=== PATIENT | female | born 1995 | race Two or more races ===

== ENCOUNTER 2023-12-21 07:08 | Outpatient (CLI) | payer OTHER ==
[2023-12-21 09:21] LABS: HEMATOCRIT 39.8 % (36.0-45.00); HEMOGLOBIN 13.6 g/dL (12.0-15.00); MEAN CELL VOLUME 87.3 fL (80.00-100.00); MEAN CORPUSCULAR HEMOGLOBIN 29.9 pg (27.00-32.0); MEAN CORPUSCULAR HGB CONC 34.3 g/dl (32.0-36.0); PLATELET COUNT 225 K/uL (150-450); RED BLOOD COUNT 4.55 M/uL (4.00-6.00); RED CELL DISTRIBUTION WIDTH 14.3 % (11.5-14.5)
[2023-12-21 09:48] LABS: ALBUMIN 4.2 gm/dL (3.4-5.0); BILIRUBIN TOTAL 0.65 mg/dL (0.3-1.2); CALCIUM 9.8 mg/dL (8.5-10.1); CREATININE SERUM 0.55 mg/dL (0.55-1.02); GFR 133.61; GLOBULINA 3.5 G/DL (2.4-3.5); POTASSIUM 4.19 mEq/L (3.5-5.1); TOTAL PROTEIN 7.7 gm/dL (6.4-8.2)
[2023-12-21 13:23] LABS: FOLIC ACID 17.21 ng/ml (4.78-20)
[2023-12-22 09:07] LABS: HOMOCYSTEINE 7.9 umol/L (0.0-14.5)
[2023-12-22 15:11] LABS: ANTI CARDIO IGA < 9 APL U/mL (0-11); ANTI CARDIO IGG < 9 GPL U/mL (0-14); ANTI CARDIO IGM < 9 MPL U/mL (0-12)
== END 2023-12-21 07:09 | disposition home or self-care (01) ==
LOC: LAB 07:08
PROVIDERS: ATTEND Internal Medicine Hematology & Oncology
DX: D68.61 Antiphospholipid syndrome (principal); O00.01 Abdominal pregnancy with intrauterine pregnancy; D51.3 Other dietary vitamin B12 deficiency anemia; D50.8 Other iron deficiency anemias; I10 Essential (primary) hypertension; R74.02 Elevation of levels of lactic acid dehydrogenase [LDH]; K76.89 Other specified diseases of liver; D51.8 Other vitamin B12 deficiency anemias; D68.59 Other primary thrombophilia; D68.51 Activated protein C resistance; D68.69 Other thrombophilia; E72.12 Methylenetetrahydrofolate reductase deficiency

== ENCOUNTER 2024-03-19 16:00 | Emergency (ER) | payer OTHER ==
[~2024-03-19] VITALS: Ht 170.2 cm; Wt 92.1 kg
[~2024-03-19 16:00] MED LIST: LOVENOX40 MG/0.4 SUBCUTANEO; PRENA1 TRUE CO1 EACH PO; VITAMIN B-125000 MC1 PO
[2024-03-19 16:39] LABS: HEMOGLOBIN 11.9 g/dL (12.0-15.00); MEAN CELL VOLUME 86.5 fL (80.00-100.00); MEAN CORPUSCULAR HEMOGLOBIN 29.3 pg (27.00-32.0); MEAN CORPUSCULAR HGB CONC 33.9 g/dl (32.0-36.0); PLATELET COUNT 186 K/uL (150-450); RED BLOOD COUNT 4.05 M/uL (4.00-6.00); RED CELL DISTRIBUTION WIDTH 14.6 % (11.5-14.5)
[2024-03-19 16:57] LABS: INR 1.03; PROTHROMBIN TIME 10.8 SECONDS (9.0-11.5)
[2024-03-19 17:29] LABS: CREATININE SERUM 0.46 mg/dL (0.55-1.02); GFR 162.95; POTASSIUM 3.34 mEq/L (3.5-5.1)
[2024-03-19 18:25] LABS: PH,URINE 7.5 (5.0-8.0); URINE APPEARANCE Clear; URINE BILIRRUBIN Negative (NEGATIVE); URINE BLOOD Large; URINE COLOR Yellow; URINE GLUCOSE Negative (NEGATIVE); URINE LEUKOCYTE Trace; URINE NITRATE Negative; URINE PROTEIN Negative (NEGATIVE)
[2024-03-19 18:29] LABS: URINE EPITHELIAL CELLS 10.6 uL (0.0-38.8); URINE RBC 946.5 uL (0.0-20.8); URINE WBC 24.7 uL (0.0-23.2)
== END 2024-03-19 19:41 | disposition home or self-care (01) ==
LOC: ER 16:01
PROVIDERS: General Practice
DX: O26.892 Other specified pregnancy related conditions, second trimester (principal); R10.2 Pelvic and perineal pain; Z3A.20 20 weeks gestation of pregnancy

== ENCOUNTER 2024-04-14 07:25 | Outpatient (CLI) | payer OTHER | END 2024-04-14 07:34 | disposition home or self-care (01) | LOC: SONOGRAMA 07:25 | PROVIDERS: ATTEND Urology | DX: N20.1 Calculus of ureter (principal) ==

== ENCOUNTER 2024-07-24 15:19 | Outpatient (CLI) | payer OTHER | END 2024-07-24 16:35 | disposition home or self-care (01) | LOC: NST 15:19 | PROVIDERS: ATTEND Obstetrics & Gynecology Maternal & Fetal Medicine | DX: Z34.83 Encounter for supervision of other normal pregnancy, third trimester (principal) ==

== ENCOUNTER 2024-07-31 13:30 | Inpatient (IN) | payer OTHER ==
[~2024-07-31] VITALS: Ht 170.2 cm; Wt 3.6 kg
[2024-08-09 05:30] VITALS: BP 127/78
[2024-08-09] MEDS ORDERED: RINGERS SOLUTION,LACTATED 1,000 ML IV SCH ×2 (05:30→21:00)
[2024-08-09 06:44] LABS: HEMATOCRIT 34.1 % (36.0-45.00); HEMOGLOBIN 11.6 g/dL (12.0-15.00); MEAN CELL VOLUME 81.4 fL (80.00-100.00); MEAN CORPUSCULAR HEMOGLOBIN 27.6 pg (27.00-32.0); MEAN CORPUSCULAR HGB CONC 33.8 g/dl (32.0-36.0); PLATELET COUNT 182 K/uL (150-450); RED BLOOD COUNT 4.19 M/uL (4.00-6.00); RED CELL DISTRIBUTION WIDTH 15.3 % (11.5-14.5)
[2024-08-09 06:53] LABS: INR 0.98; PARTIAL THROMBOPLASTIN TIME 27.2 SECONDS (22.0-34.0); PROTHROMBIN TIME 10.7 SECONDS (9.0-11.5)
[2024-08-09 07:03] LABS: ALBUMIN 3.1 gm/dL (3.4-5.0); BILIRUBIN TOTAL 0.32 mg/dL (0.3-1.2); CALCIUM 10.1 mg/dL (8.5-10.1); CREATININE SERUM 0.5 mg/dL (0.55-1.02); GLOBULINA 3.6 G/DL (2.4-3.5); POTASSIUM 3.92 mEq/L (3.5-5.1); TOTAL PROTEIN 6.7 gm/dL (6.4-8.2)
[2024-08-09 07:32] VITALS: BP 133/82
[2024-08-09] MEDS ORDERED: OXYTOCIN 500 ML IV ONE (08:00)
[2024-08-09 11:35] VITALS: BP 117/54
[2024-08-09 15:20] VITALS: BP 134/79
[2024-08-09 20:40] VITALS: BP 128/70
[2024-08-09] MEDS ORDERED: MORPHINE SULFATE 4 MG/ML CARTRIDGE IV PRN (21:00)
[2024-08-09] MEDS ORDERED: OXYTOCIN 1,000 ML IV ONE (21:00)
[2024-08-09] MEDS ORDERED: OXYTOCIN 10 UNITS/ML VIAL IV ONE (22:15)
[2024-08-09] MEDS ORDERED: CEFAZOLIN SODIUM 1,000 MG VIAL IV ONE (22:15)
[2024-08-09] MEDS ORDERED: ERYTHROMYCIN BASE OPHT 1GM EACH TUBE OP ONE (22:15)
[2024-08-10] MEDS ORDERED: KETOROLAC TROMETHAMINE 30 MG VIAL IV SCH
[2024-08-10] MEDS ORDERED: ACETAMINOPHEN 500 MG GEL..CAP PO SCH
[2024-08-10] MEDS ORDERED: ONDANSETRON HCL 2 MG/ML VIAL IV SCH
[2024-08-10] MEDS ORDERED: SIMETHICONE 125 MG CAPSULE PO SCH (01:00)
[2024-08-10] MEDS ORDERED: GABAPENTIN 300 MG CAPSULE PO SCH (01:00)
[2024-08-10 02:27] VITALS: BP 111/60
[2024-08-10 06:07] LABS: HEMATOCRIT 32.1 % (36.0-45.00); HEMOGLOBIN 10.4 g/dL (12.0-15.00); MEAN CELL VOLUME 83.1 fL (80.00-100.00); MEAN CORPUSCULAR HEMOGLOBIN 26.9 pg (27.00-32.0); MEAN CORPUSCULAR HGB CONC 32.3 g/dl (32.0-36.0); PLATELET COUNT 164 K/uL (150-450); RED BLOOD COUNT 3.87 M/uL (4.00-6.00); RED CELL DISTRIBUTION WIDTH 15.3 % (11.5-14.5)
[2024-08-10] MEDS ORDERED: KETOROLAC TROMETHAMINE 10 MG TABLET PO SCH (08:00)
[2024-08-10] MEDS ORDERED: OxyCODONE HCL 5 MG TABLET (ROXICODONE) PO PRN (08:00)
[2024-08-10] MEDS ORDERED: DOCUSATE SODIUM 100MG CAP PO SCH (09:00)
[2024-08-10 09:14] VITALS: BP 112/69
[2024-08-10 16:00] VITALS: BP 117/80
[2024-08-11 01:28] VITALS: BP 100/64
[2024-08-11] MEDS ORDERED: OxyCODONE HCL 5 MG TABLET (ROXICODONE) PO PRN (06:00)
[2024-08-11 06:19] VITALS: BP 105/71
[2024-08-11] MEDS ORDERED: IBUprofen 400 MG TABLET PO SCH (09:00)
[2024-08-11 09:01] VITALS: BP 127/69
== END 2024-08-11 16:31 | disposition home or self-care (01) | DRG 788 ==
LOC: OB/GYN 08-09 05:07 → LDR 08-09 05:07 → OB/GYN 08-09 22:47
PROVIDERS: Obstetrics & Gynecology; ADMIT Obstetrics & Gynecology Maternal & Fetal Medicine; ATTEND Obstetrics & Gynecology Maternal & Fetal Medicine
PROC: 4A1HXCZ Monitoring of Products of Conception, Cardiac Rate, External Approach (ICD-10-PCS; 2024-08-09)
PROC: 10D00Z1 Extraction of Products of Conception, Low, Open Approach (ICD-10-PCS; principal; 2024-08-09 20:30)
DX: O82 Encounter for cesarean delivery without indication (principal); O62.1 Secondary uterine inertia; Z3A.39 39 weeks gestation of pregnancy; Z37.0 Single live birth